=== PATIENT | female | born 1980 | race Hispanic/Latino ===

== ENCOUNTER 2016-08-26 14:48 | Emergency (ER) | payer MEDICAID ==
[2016-08-26 15:34] VITALS: BP 134/92; PULSE 77; RESP 18; TEMP 97.8; O2SAT 98
[2016-08-26] MEDS ORDERED: Oxycodone/Acetaminophen 5/325 mg Tab PO STA (15:48)
--- NOTE | 2016-08-26 15:50 | ED PDOC ---
HPI: Headache Time Seen by Provider: 08/26/16 15:34 Chief Complaint (Nursing): Headache Chief Complaint (Provider): Headache History Per: Patient History/Exam Limitations: no limitations Onset/Duration Of Symptoms: Hrs Current Symptoms Are (Timing): Still Present Additional Complaint(s): 15:34 Zeeshan Byrne is a 36 year old female that presents to the ED with a chief complaint of a headache the began today around 6:00 AM. Patient reports that she was awoken form her sleep due to a throbbing pain in the back of her head, which she states is due to a bump that has formed on the back left side of her head. Her pain worsens upon movement of her neck, but she reports that the pain is constant regardless of movement. She denies any vision changes. Patient also states that she took Sudafed and Motrin earlier today in an attempt to relieve her pain but that it did not help. Past Medical History Reviewed: Historical Data, Nursing Documentation, Vital Signs Vital Signs: Last Vital Signs Temp 97.8 F 08/26/16 15:32 Pulse 77 08/26/16 15:32 Resp 18 08/26/16 15:32 BP 134/92 H 08/26/16 15:32 Pulse Ox 98 08/26/16 15:32 - Family History Family History: States: Unknown Family Hx - Home Medications Home Medications: Ambulatory Orders Medication Instructions Recorded Ibuprofen [Motrin] 600 mg PO Q6 #20 tab 08/26/16 - Allergies Allergies/Adverse Reactions: Allergies Allergy/AdvReac Type Severity Reaction Status Date / Time No Known Allergies Allergy Verified 08/21/15 12:56 Review of Systems Eyes: Negative for: Vision Change (Patient denies blurry vision or double vision ) Neurological: Positive for: Headache Physical Exam - Reviewed Nursing Documentation Reviewed: Yes Vital Signs Reviewed: Yes - Physical Exam Appears: Positive for: Non-toxic, No Acute Distress Head Exam: Positive for: ATRAUMATIC, NORMOCEPHALIC. Negative for: NORMAL INSPECTION (Tender, firm, mobile mass, 3cm in size on the left occipital scalp. ) - ECG O2 Sat by Pulse Oximetry: 98 (RA) Pulse Ox Interpretation: Normal Medical Decision Making Medical Decision Makin:48 Impression: Subaceous Cyst Initial Plan: * CT Head w/o Contrast * Urine * Oxycodone 1 tab PO * Reevaluation CT Negative, as per radiologist Informed patient about most likely growth of subaceous cyst, and how today's onset pain may be due to possible pressure on nerve. Advised patient about possible removal routes of cyst after leaving ED, such as through a fleet manager or through a plastic surgeon. Scribe Attestation: Documented by Camelia Mosher, acting as a scribe for Krystal Clark PA-C. Provider Scribe Attestation: All medical record entries made by the Scribe were at my direction and personally dictated by me. I have reviewed the chart and agree that the record accurately reflects my personal performance of the history, physical exam, medical decision making, and the department course for this patient. I have also personally directed, reviewed, and agree with the discharge instructions and disposition. Disposition - Clinical Impression Clinical Impression: Headache, Sebaceous cyst - Patient ED Disposition Is Patient to be Admitted: No - Disposition Disposition: Routine/Home Disposition Time: 17:09 Condition: STABLE Prescriptions: Ibuprofen [Motrin] 600 mg PO Q6 #20 tab Instructions: Acute Headache (ED), Cyst (ED)
[2016-08-26] MEDS ORDERED: Oxycodone/Acetaminophen 5/325 mg Tab ONE (15:58)
--- NOTE | 2016-08-26 16:45 | CT ---
PROCEDURE: CT HEAD WITHOUT CONTRAST. HISTORY: headache severe, woke her up from sleep COMPARISON: None available. TECHNIQUE: Axial computed tomography images were obtained through the head/brain without intravenous contrast. Radiation dose: Total exam DLP = 877 mGy-cm. This CT exam was performed using one or more of the following dose reduction techniques: Automated exposure control, adjustment of the mA and/or kV according to patient size, and/or use of iterative reconstruction technique. FINDINGS: HEMORRHAGE: No intracranial hemorrhage. BRAIN: No mass effect or edema. No atrophy or chronic microvascular ischemic changes. VENTRICLES: Unremarkable. No hydrocephalus. CALVARIUM: Unremarkable. PARANASAL SINUSES: Unremarkable as visualized. No significant inflammatory changes. MASTOID AIR CELLS: Unremarkable as visualized. No inflammatory changes. OTHER FINDINGS: None. IMPRESSION: Normal CT of the Head.
== END 2016-08-26 17:19 | disposition home or self-care (01) ==
LOC: H.ER 14:48
DX: R51 Headache (principal); L72.3 Sebaceous cyst